=== PATIENT | female | born 1965 | race Caucasian/White ===

== ENCOUNTER → 2019-05-15 14:01 | Outpatient (BNVA) | payer MEDICARE, MEDICAID, SELFPAY | PROVIDERS: Family Provider Internal Medicine; PCP Internal Medicine; Visit Provider Anesthesiology | DX: M54.40 Lumbago with sciatica, unspecified side (principal); M54.12 Radiculopathy, cervical region; M79.651 Pain in right thigh; M79.652 Pain in left thigh; Z79.891 Long term (current) use of opiate analgesic | CPT/HCPCS: 99214 ==

== ENCOUNTER → 2019-07-05 13:11 | Outpatient (BNVA) | payer MEDICARE, MEDICAID, SELFPAY | PROVIDERS: Family Provider Internal Medicine; PCP Internal Medicine; Visit Provider Nurse Practitioner | DX: Z76.89 Persons encountering health services in other specified circumstances (principal) | CPT/HCPCS: 99212 ==

== ENCOUNTER 2019-07-12 07:28 | Outpatient (CLI) | payer MEDICARE, MEDICAID, SELFPAY ==
--- NOTE | 2019-07-12 07:35 | US_ITS ---
WS: [id number] ULTRASOUND RIGHT BREAST HISTORY: R PEA SIZED MASS TO 1 O'CLOCK R BREAST/CHEST AREA COMPARISON: Mammogram 01/15/2019 TECHNIQUE: 2-D and Doppler. Isoechoic ill-defined structure in the RIGHT breast at 1:00, 6 cm from the nipple. This corresponds t o the palpable abnormality. This is very benign in appearance and blends in with the adjacent soft ti ssue. No increased vascularity. US/US breast RT limited* [id number] IMPRESSION: BI-RADS: 2-Benign FOLLOW-UP: See Report Recommend return to screening mammogram which should be in January 2020. If this palpable nodule increases in size we can reevaluate by ultrasound. On t soy's ultrasound this is extremely benign in appearance.
== END 2019-07-12 07:29 | disposition home or self-care (01) ==
PROVIDERS: Family Provider Internal Medicine; PCP Internal Medicine; Visit Provider Nurse Practitioner Family
DX: N63.12 Unspecified lump in the right breast, upper inner quadrant (principal)
CPT/HCPCS: 76642

== ENCOUNTER → 2019-09-11 08:48 | Outpatient (BNVA) | payer MEDICARE, MEDICAID, SELFPAY | PROVIDERS: Family Provider Internal Medicine; PCP Internal Medicine; Visit Provider Nurse Practitioner | DX: M54.41 Lumbago with sciatica, right side (principal); M54.42 Lumbago with sciatica, left side; M54.12 Radiculopathy, cervical region; Z79.891 Long term (current) use of opiate analgesic | CPT/HCPCS: 99213 ==

== ENCOUNTER → 2019-10-17 14:36 | Outpatient (BNVA) | payer MEDICARE, MEDICAID, SELFPAY | PROVIDERS: Family Provider Internal Medicine; PCP Internal Medicine; Referring Provider Nurse Practitioner; Visit Provider Specialist | DX: R20.0 Anesthesia of skin (principal); R20.2 Paresthesia of skin; M25.531 Pain in right wrist | CPT/HCPCS: 95908 ==

== ENCOUNTER → 2019-11-01 09:24 | Outpatient (BNVA) | payer MEDICARE, MEDICAID, SELFPAY | PROVIDERS: Family Provider Internal Medicine; PCP Internal Medicine; Visit Provider Nurse Practitioner | DX: M54.42 Lumbago with sciatica, left side (principal); M54.41 Lumbago with sciatica, right side; M54.12 Radiculopathy, cervical region; Z79.891 Long term (current) use of opiate analgesic | CPT/HCPCS: 99214 ==

== ENCOUNTER 2019-12-25 08:28 | Outpatient (CLI) | payer MEDICARE, MEDICAID, SELFPAY ==
--- NOTE | 2019-12-25 08:39 | MM_ITS ---
WS: [id number] BILATERAL DIGITAL DIAGNOSTIC MAMMOGRAM MAMMOGRAPHY WITH CAD CLINICAL INFORMATION: RT BREAST LUMP COMPARISON: January 15, 2019 TECHNIQUE: Bilateral CC, MLO, and ML views. FINDINGS: Scattered fibroglandular densities bilaterally. Palpable marker upper inner right breast posterior de pth. No definite mammographic abnormalities. Ultrasound is pending. Left breast is unremarkable.. ULTRASOUND BREAST RIGHT TECHNIQUE: Ultrasound right breast focused area of concern. CLINICAL INFORMATION: RT BREAST LUMP COMPARISON: None. FINDINGS: Ultrasound breast right at the 1:00 position in the area of concern. No pathologic lesions. No lesion s to target for biopsy. No suspicious lesions. Recommend return to annual screening mammography. MM/[place] [id number] IMPRESSION: BI-RADS: 2-Benign FOLLOW UP: 1 Year Follow-up Recommend return to annual screening mammography.
== END 2019-12-25 08:29 | disposition home or self-care (01) ==
LOC: RADSHAW 08:32
PROVIDERS: PCP Internal Medicine; Visit Provider Internal Medicine
DX: N63.12 Unspecified lump in the right breast, upper inner quadrant (principal)
CPT/HCPCS: 76642; 77066

== ENCOUNTER → 2020-01-11 09:17 | Outpatient (BNVA) | payer OTHER, MEDICAID, SELFPAY | PROVIDERS: PCP Internal Medicine; Visit Provider Nurse Practitioner | DX: M54.41 Lumbago with sciatica, right side (principal); M54.12 Radiculopathy, cervical region; Z79.891 Long term (current) use of opiate analgesic | CPT/HCPCS: 99213 ==

== ENCOUNTER → 2020-02-28 09:51 | Outpatient (BNVA) | payer OTHER, MEDICAID, SELFPAY | PROVIDERS: PCP Internal Medicine; Visit Provider Anesthesiology | DX: M54.41 Lumbago with sciatica, right side (principal); M54.12 Radiculopathy, cervical region; Z79.891 Long term (current) use of opiate analgesic | CPT/HCPCS: 99214 ==

== ENCOUNTER → 2020-04-09 09:13 | Outpatient (BNVA) | payer OTHER, MEDICAID, SELFPAY | PROVIDERS: PCP Internal Medicine; Visit Provider Anesthesiology | DX: M54.41 Lumbago with sciatica, right side (principal); M54.12 Radiculopathy, cervical region; R51.9 Headache, unspecified; Z79.891 Long term (current) use of opiate analgesic | CPT/HCPCS: 99214 ==

== ENCOUNTER → 2020-05-09 09:07 | Outpatient (BNVA) | payer MEDICARE, MEDICAID, SELFPAY | PROVIDERS: PCP Internal Medicine; Visit Provider Nurse Practitioner | DX: M54.12 Radiculopathy, cervical region (principal); M54.41 Lumbago with sciatica, right side; M25.551 Pain in right hip; Z79.891 Long term (current) use of opiate analgesic; Z79.1 Long term (current) use of non-steroidal anti-inflammatories (NSAID) | CPT/HCPCS: 99214 ==

== ENCOUNTER 2020-05-22 09:14 | Outpatient (CLI) | payer MEDICARE, MEDICAID, SELFPAY ==
--- NOTE | 2020-05-22 09:15 | CT_ITS ---
WS: [id number] CT LUMBAR SPINE, noncontrast. HISTORY: M54.40 - Lumbago with sciatica, unspecified side TECHNIQUE: Contiguous 2.5 mm axial imaging are performed. Sagittal and coronal reformats are submitte d and reviewed. All CT scans at [facility] use at least one of these dose optimization te chniques: automated exposure control; mA and/or kV adjustment per patient size (includes targeted exa ms where dose is matched to clinical indication); or iterative reconstruction. IV contrast: None DLP: 2046.12 mGycm COMPARISON: 12/26/2013 Mild increase in the lumbar lordosis. Endplate osteophytes and facet arthritis. No fractures or bone destruction. L1-2: Mild annular disc bulging and osteophytic ridging. No stenosis. L2-3: Mild osteophytic ridging and annular disc bulge. No stenosis. L3-4: Moderate annular disc bulging and osteophytic ridging. Mild ligamentum flavum hypertrophy. Ther e is mild central and bilateral foraminal stenosis. L4-5: Moderate annular disc bulging and osteophytic ridging. Facet joint arthritis encroaching into t he thecal sac. Moderate central and bilateral foraminal stenosis. Mild bilateral subarticular recess stenosis. L5-S1: Small osteophytes with no stenosis. Bilateral facet joint arthritis. Visualized retroperitoneum is normal. CT/CT lumbar spine wo con* [id number] IMPRESSION: 1. Moderate central and bilateral foraminal stenosis at L4-5 and mild bilatera l subarticular recess stenosis. Similar to the prior study from 2013. 2. Mild central and bilateral foraminal stenosis at L3-4. 3. No severe stenosis.
== END 2020-05-22 09:15 | disposition home or self-care (01) ==
LOC: RADWPI 09:21
PROVIDERS: PCP Internal Medicine; Visit Provider Nurse Practitioner
DX: M54.40 Lumbago with sciatica, unspecified side (principal); M48.061 Spinal stenosis, lumbar region without neurogenic claudication
CPT/HCPCS: 72131

== ENCOUNTER → 2020-07-04 10:02 | Outpatient (BNVA) | payer MEDICARE, MEDICAID, SELFPAY | PROVIDERS: PCP Internal Medicine; Visit Provider Nurse Practitioner | DX: M54.12 Radiculopathy, cervical region (principal); M54.41 Lumbago with sciatica, right side; M25.551 Pain in right hip; Z79.1 Long term (current) use of non-steroidal anti-inflammatories (NSAID); Z79.891 Long term (current) use of opiate analgesic | CPT/HCPCS: 99214 ==

== ENCOUNTER → 2020-08-27 09:34 | Outpatient (BNVA) | payer MEDICARE, MEDICAID, SELFPAY | PROVIDERS: PCP Internal Medicine; Visit Provider Anesthesiology | DX: M54.41 Lumbago with sciatica, right side (principal); M54.12 Radiculopathy, cervical region; Z79.1 Long term (current) use of non-steroidal anti-inflammatories (NSAID); Z79.891 Long term (current) use of opiate analgesic | CPT/HCPCS: 99214 ==

== ENCOUNTER → 2020-10-22 08:58 | Outpatient (BNVA) | payer MEDICARE, MEDICAID, SELFPAY | PROVIDERS: PCP Internal Medicine; Visit Provider Anesthesiology | DX: M54.41 Lumbago with sciatica, right side (principal); M54.12 Radiculopathy, cervical region; Z79.1 Long term (current) use of non-steroidal anti-inflammatories (NSAID); Z79.891 Long term (current) use of opiate analgesic; Z87.891 Personal history of nicotine dependence | CPT/HCPCS: 99214 ==

== ENCOUNTER → 2020-12-31 09:03 | Outpatient (BNVA) | payer MEDICARE, MEDICAID, SELFPAY | PROVIDERS: PCP Internal Medicine; Visit Provider Anesthesiology | DX: M54.41 Lumbago with sciatica, right side (principal); M54.12 Radiculopathy, cervical region; Z79.891 Long term (current) use of opiate analgesic; Z79.1 Long term (current) use of non-steroidal anti-inflammatories (NSAID) | CPT/HCPCS: 99214 ==

== ENCOUNTER → 2021-02-25 11:12 | Outpatient (BNVA) | payer MEDICARE, MEDICAID, SELFPAY | PROVIDERS: PCP Internal Medicine; Visit Provider Anesthesiology | DX: M54.12 Radiculopathy, cervical region (principal); M54.41 Lumbago with sciatica, right side; Z79.891 Long term (current) use of opiate analgesic; Z79.1 Long term (current) use of non-steroidal anti-inflammatories (NSAID); Z87.891 Personal history of nicotine dependence | CPT/HCPCS: 99214 ==

== ENCOUNTER → 2021-04-14 14:31 | Outpatient (BNVA) | payer MEDICARE, MEDICAID, SELFPAY | PROVIDERS: PCP Internal Medicine; Referring Provider Internal Medicine; Visit Provider Podiatrist Foot & Ankle Surgery | DX: M79.671 Pain in right foot (principal) | CPT/HCPCS: 73630 ==

== ENCOUNTER → 2021-04-29 12:42 | Outpatient (BNVA) | payer MEDICARE, MEDICAID, SELFPAY | PROVIDERS: PCP Internal Medicine; Visit Provider Anesthesiology | DX: M54.40 Lumbago with sciatica, unspecified side (principal); M54.12 Radiculopathy, cervical region; M25.551 Pain in right hip; Z79.1 Long term (current) use of non-steroidal anti-inflammatories (NSAID); Z79.891 Long term (current) use of opiate analgesic | CPT/HCPCS: 99214 ==

== ENCOUNTER 2021-05-19 08:30 | Outpatient (CLI) | payer MEDICARE, MEDICAID, SELFPAY ==
--- NOTE | 2021-05-19 08:43 | MM_ITS ---
WS: [id number] BILATERAL SCREENING DIGITAL MAMMOGRAM WITH CAD HISTORY: SCREENING COMPARISON: 12/25/2019 and 01/15/2019 Bilateral CC and MLO views submitted. Computer aided detection analyzed. Breast composition: There are scattered areas of fibroglandular density. No suspicious masses, microc alcifications or architectural distortion. MM/[place] [id number] IMPRESSION: BI-RADS: 1-Negative FOLLOW UP: 1 Year Follow-up
== END 2021-05-19 08:31 | disposition home or self-care (01) ==
PROVIDERS: PCP Internal Medicine; Visit Provider Internal Medicine
DX: Z12.31 Encounter for screening mammogram for malignant neoplasm of breast (principal)
CPT/HCPCS: 77067

== ENCOUNTER 2021-07-15 08:45 | Outpatient (CLI) | payer MEDICARE, MEDICAID, SELFPAY ==
--- NOTE | 2021-07-15 09:12 | CT_ITS ---
WS: [id number] CT LUMBAR SPINE, noncontrast. HISTORY: LUMBOSACRAL/SPONDYLOSIS W/RADICULOPATHY TECHNIQUE: Contiguous 2.5 mm axial imaging are performed. Sagittal and coronal reformats are submitte d and reviewed. All CT scans at [facility] use at least one of these dose optimization techni ques: automated exposure control; mA and/or kV adjustment per patient size (includes targeted exams w here dose is matched to clinical indication); or iterative reconstruction. IV contrast: None DLP: 1767.54 mGy.cm COMPARISON: 05/22/2020 Mild increase in the lumbar lordosis. No acute fractures. Progressive facet joint degenerative change s at L4-5. Increasing air and mild widening of the facet joint at L4-5. L1-2: Mild disc bulging with no stenosis. L2-3: No stenosis or herniation. L3-4: Diffuse annular disc bulging contacting the ventral thecal sac. Bilateral facet joint arthritis and ligamentum flavum hypertrophy. Mild central and bilateral foraminal stenosis. There are small bi lateral foraminal disc protrusions. Minimal contact on the exiting L3 nerve roots bilaterally. L4-5: Mild annular disc bulge. Ligamentum flavum hypertrophy and facet arthritis. Disc encroachment u amish the ventral thecal sac. Complete effacement of fat in the RIGHT foramen. Moderate central and RIG HT foraminal stenosis. Mild bilateral subarticular recess encroachment and LEFT foraminal stenosis. L5-S1: Shallow central disc protrusion contacting the ventral thecal sac. New since the prior study. No high-grade central or foraminal stenosis. Bilateral facet joint arthritis. Visualized retroperitoneum is normal. CT/CT lumbar spine wo con* [id number] IMPRESSION: 1. Progression of degenerative facet joint arthritis at L4-5 and to a lesser e xtent L5-S1. 2. Increase in air and widening of the L4-5 facet joints. 3. Moderate central and RIGHT foraminal stenosis L4-5 with mild bilateral suba rticular recess and LEFT foraminal stenosis. Contact on the RIGHT L4 and L5 ner ve roots and on the LEFT L5 nerve root. 4. Mild central and bilateral foraminal stenosis at L3-4. Minimal contact on t he L3 nerve roots by disc. Small bilateral foraminal disc protrusions at L3-4.
== END 2021-07-15 08:46 | disposition home or self-care (01) ==
LOC: RAD 08:48
PROVIDERS: PCP Internal Medicine; Visit Provider General Practice
DX: M47.27 Other spondylosis with radiculopathy, lumbosacral region (principal); M47.816 Spondylosis without myelopathy or radiculopathy, lumbar region; M48.061 Spinal stenosis, lumbar region without neurogenic claudication; M51.26 Other intervertebral disc displacement, lumbar region
CPT/HCPCS: 72131

== ENCOUNTER → 2021-10-21 13:34 | Outpatient (BNVA) | payer MEDICARE, MEDICAID, SELFPAY | PROVIDERS: PCP Internal Medicine; Visit Provider Podiatrist Foot & Ankle Surgery | DX: M21.41 Flat foot [pes planus] (acquired), right foot (principal); M21.42 Flat foot [pes planus] (acquired), left foot; M76.829 Posterior tibial tendinitis, unspecified leg; M19.071 Primary osteoarthritis, right ankle and foot | CPT/HCPCS: 99213; 99214 ==

== ENCOUNTER 2021-12-03 11:11 | Outpatient (CLI) | payer MEDICARE, MEDICAID, SELFPAY | END 2021-12-03 11:12 | disposition home or self-care (01) | LOC: SPT 11:12 | PROVIDERS: PCP Internal Medicine; Visit Provider Podiatrist Foot & Ankle Surgery | DX: Z46.89 Encounter for fitting and adjustment of other specified devices (principal); M21.41 Flat foot [pes planus] (acquired), right foot; M21.42 Flat foot [pes planus] (acquired), left foot; M76.829 Posterior tibial tendinitis, unspecified leg; M19.079 Primary osteoarthritis, unspecified ankle and foot | CPT/HCPCS: 97760; L3030 ==

== ENCOUNTER → 2022-05-18 09:07 | Outpatient (BNVA) | payer MEDICARE, MEDICAID, SELFPAY | PROVIDERS: PCP Internal Medicine; Visit Provider Anesthesiology Pain Medicine | DX: M54.12 Radiculopathy, cervical region (principal); M47.816 Spondylosis without myelopathy or radiculopathy, lumbar region; M79.604 Pain in right leg; M79.605 Pain in left leg | CPT/HCPCS: 99204 ==

== ENCOUNTER → 2022-06-01 13:19 | Outpatient (BNVA) | payer MEDICARE, MEDICAID, SELFPAY | PROVIDERS: PCP Internal Medicine; Visit Provider Anesthesiology Pain Medicine | DX: M47.816 Spondylosis without myelopathy or radiculopathy, lumbar region (principal) | CPT/HCPCS: 64493; 64494; 64495; J3490 ==

== ENCOUNTER → 2022-06-15 13:36 | Outpatient (BNVA) | payer MEDICARE, MEDICAID, SELFPAY | PROVIDERS: PCP Internal Medicine; Visit Provider Anesthesiology Pain Medicine | DX: M47.816 Spondylosis without myelopathy or radiculopathy, lumbar region (principal); M54.40 Lumbago with sciatica, unspecified side | CPT/HCPCS: 64493; 64494; 64495; J3490 ==

== ENCOUNTER 2022-06-17 08:57 | Outpatient (CLI) | payer MEDICARE, MEDICAID, SELFPAY ==
--- NOTE | 2022-06-17 09:16 | MM_ITS ---
WS: [id number] Bilateral screening 3D tomosynthesis digital mammogram, 06/17/2022 Clinical Data: SCREENING Comparison: 05/19/2021, 12/25/2019, 01/15/2019, 11/24/2017, 07/12/2016, 07/16/2014. Findings: The breast parenchymal pattern shows fibroglandular tissue. No spiculated masses or clustered calcifi cations are seen. There are no secondary signs of carcinoma. MM/[place] [id number] Impression: 1. Negative bilateral mammogram unchanged. 2. Recommend annual screening mammograms. BIRADS: 1-Negative FOLLOW UP: 1 Year Follow-up The CAD inventory checker was used.
== END 2022-06-17 08:58 | disposition home or self-care (01) ==
LOC: RAD 09:01
PROVIDERS: PCP Internal Medicine; Visit Provider Internal Medicine
DX: Z12.31 Encounter for screening mammogram for malignant neoplasm of breast (principal)
CPT/HCPCS: 77063; 77067

== ENCOUNTER → 2022-07-06 11:17 | Outpatient (BNVA) | payer MEDICARE, MEDICAID, SELFPAY | PROVIDERS: PCP Internal Medicine; Visit Provider Anesthesiology Pain Medicine | DX: M16.0 Bilateral primary osteoarthritis of hip (principal); M25.551 Pain in right hip; M54.40 Lumbago with sciatica, unspecified side; M47.816 Spondylosis without myelopathy or radiculopathy, lumbar region; M54.12 Radiculopathy, cervical region | CPT/HCPCS: 73503; 73522; 99214 ==

== ENCOUNTER → 2022-08-03 12:31 | Outpatient (BNVA) | payer MEDICARE, MEDICAID, SELFPAY | PROVIDERS: PCP Internal Medicine; Visit Provider Anesthesiology Pain Medicine | DX: M47.816 Spondylosis without myelopathy or radiculopathy, lumbar region (principal); M54.50 Low back pain, unspecified | CPT/HCPCS: 64635; 64636; J1030 ==

== ENCOUNTER → 2022-09-09 10:57 | Outpatient (BNVA) | payer MEDICARE, MEDICAID, SELFPAY | PROVIDERS: PCP Internal Medicine; Visit Provider Anesthesiology Pain Medicine | DX: M54.12 Radiculopathy, cervical region (principal); M47.816 Spondylosis without myelopathy or radiculopathy, lumbar region; M25.551 Pain in right hip | CPT/HCPCS: 99214 ==

== ENCOUNTER → 2022-10-26 13:07 | Outpatient (BNVA) | payer MEDICARE, MEDICAID, SELFPAY | PROVIDERS: PCP Internal Medicine; Visit Provider Anesthesiology Pain Medicine | DX: M47.816 Spondylosis without myelopathy or radiculopathy, lumbar region (principal); M54.40 Lumbago with sciatica, unspecified side; M54.12 Radiculopathy, cervical region; M25.559 Pain in unspecified hip | CPT/HCPCS: 64635; 64636; J1030 ==

== ENCOUNTER → 2022-11-10 10:43 | Outpatient (BNVA) | payer MEDICARE, MEDICAID, SELFPAY | PROVIDERS: PCP Internal Medicine; Visit Provider Anesthesiology Pain Medicine | DX: M54.12 Radiculopathy, cervical region; M47.816 Spondylosis without myelopathy or radiculopathy, lumbar region | CPT/HCPCS: 99214 ==

== ENCOUNTER → 2022-12-02 14:15 | Outpatient (BNVA) | payer MEDICARE, MEDICAID, SELFPAY | PROVIDERS: PCP Internal Medicine; Visit Provider Anesthesiology Pain Medicine | DX: M54.16 Radiculopathy, lumbar region (principal); M54.40 Lumbago with sciatica, unspecified side | CPT/HCPCS: 64483; 64484; J1100; J3490 ==

== ENCOUNTER → 2022-12-21 13:10 | Outpatient (BNVA) | payer MEDICARE, MEDICAID, SELFPAY | PROVIDERS: PCP Internal Medicine; Visit Provider Anesthesiology Pain Medicine | DX: M54.16 Radiculopathy, lumbar region (principal) | CPT/HCPCS: 64483; 64484; J1100; J3490 ==

== ENCOUNTER → 2023-01-10 08:58 | Outpatient (BNVA) | payer MEDICARE, MEDICAID, SELFPAY | PROVIDERS: PCP Internal Medicine; Visit Provider Anesthesiology Pain Medicine | DX: M54.40 Lumbago with sciatica, unspecified side; M54.12 Radiculopathy, cervical region; M47.816 Spondylosis without myelopathy or radiculopathy, lumbar region; M16.0 Bilateral primary osteoarthritis of hip | CPT/HCPCS: 99214 ==

== ENCOUNTER 2023-01-19 06:00 | Outpatient (RCR) | payer MEDICARE, MEDICAID, SELFPAY | END 2023-02-08 23:59 | disposition home or self-care (01) | LOC: APT 06:00 | PROVIDERS: Visit Provider Anesthesiology Pain Medicine | DX: M25.559 Pain in unspecified hip (principal) | CPT/HCPCS: 97110; 97112; 97162; 97530 ==

== ENCOUNTER 2023-02-09 06:00 | Outpatient (RCR) | payer MEDICARE, MEDICAID, SELFPAY | END 2023-03-10 23:59 | disposition home or self-care (01) | LOC: APT 06:00 | PROVIDERS: PCP Internal Medicine; Visit Provider Anesthesiology Pain Medicine | DX: M25.559 Pain in unspecified hip (principal) | CPT/HCPCS: 97110; 97112; 97140; 97530 ==

== ENCOUNTER → 2023-02-15 09:56 | Outpatient (BNVA) | payer MEDICARE, MEDICAID, SELFPAY | PROVIDERS: PCP Internal Medicine; Visit Provider Anesthesiology Pain Medicine | DX: M54.12 Radiculopathy, cervical region; M47.816 Spondylosis without myelopathy or radiculopathy, lumbar region; M48.061 Spinal stenosis, lumbar region without neurogenic claudication | CPT/HCPCS: 99213 ==

== ENCOUNTER 2023-03-11 06:00 | Outpatient (RCR) | payer MEDICARE, MEDICAID, SELFPAY | END 2023-04-10 23:59 | disposition home or self-care (01) | LOC: APT 06:00 | PROVIDERS: PCP Internal Medicine; Visit Provider Anesthesiology Pain Medicine | DX: M25.559 Pain in unspecified hip (principal) | CPT/HCPCS: 97110; 97530 ==

== ENCOUNTER 2023-04-12 10:38 | Outpatient (CLI) | payer MEDICARE, MEDICAID, SELFPAY ==
--- NOTE | 2023-04-12 10:43 | USR_ITS ---
PROCEDURE INFORMATION: Exam: US Soft Tissue Head and Neck, Thyroid Exam date and time: 04/12/2023 10:51 AM Age: 57 years old Clinical indication: Abnormal findings; Abnormal thyroid lab test; Additional info: Hypothyroidism TECHNIQUE: Imaging protocol: Real-time ultrasound scan of the neck with image documentation. Exam focused on the thyroid. COMPARISON: [place] thyroid [id number] 02/15/2017 1:53 PM FINDINGS: Right thyroid lobe: Coarsened heterogeneous gland without hyperemia or discrete nodule, measuring 1.4 x 1.8 x 3.8 cm. Left thyroid lobe: Coarsened heterogeneous gland without hyperemia or discrete nodule, measuring 1.2 x 1.4 x 3.1 cm. Isthmus: No nodules. Measures 0.3 cm in thickness. Other findings: Interrogated submandibular glands have a normal appearance. No suspicious lymphadenopathy. US/US thyroid [id number] IMPRESSION: Atrophic coarsened heterogeneous thyroid gland in keeping with sequela of thyroiditis.
== END 2023-04-12 10:39 | disposition home or self-care (01) ==
PROVIDERS: PCP Internal Medicine; Visit Provider Internal Medicine
DX: E03.9 Hypothyroidism, unspecified (principal)
CPT/HCPCS: 76536

== ENCOUNTER → 2023-05-18 09:54 | Outpatient (BNVA) | payer MEDICARE, MEDICAID, SELFPAY | PROVIDERS: PCP Internal Medicine; Visit Provider Anesthesiology Pain Medicine | DX: M54.12 Radiculopathy, cervical region; M47.816 Spondylosis without myelopathy or radiculopathy, lumbar region; M16.0 Bilateral primary osteoarthritis of hip | CPT/HCPCS: 99214 ==

== ENCOUNTER → 2023-05-30 14:12 | Outpatient (BNVA) | payer MEDICARE, MEDICAID, SELFPAY | PROVIDERS: PCP Internal Medicine; Visit Provider Anesthesiology Pain Medicine | DX: M54.16 Radiculopathy, lumbar region (principal); M25.559 Pain in unspecified hip; M54.12 Radiculopathy, cervical region; M47.816 Spondylosis without myelopathy or radiculopathy, lumbar region; M48.061 Spinal stenosis, lumbar region without neurogenic claudication | CPT/HCPCS: 99214 ==

== ENCOUNTER 2023-07-19 11:55 | Outpatient (CLI) | payer MEDICARE, MEDICAID, SELFPAY ==
--- NOTE | 2023-07-19 12:00 | MM_ITS ---
WS: [id number] BILATERAL 3D TOMOSYNTHESIS DIGITAL SCREENING MAMMOGRAPHY WITH CAD CLINICAL INFORMATION: SCREENING HISTORY: Screening mammogram. No current complaints. COMPARISON: 06/17/2022 TECHNIQUE: Bilateral CC and MLO views. FINDINGS: Scattered fibroglandular densities bilaterally. No suspicious focal mass, asymmetry, calcifications, or architectural distortion. No evidence of malignancy. IMPRESSION: MM/[place] [id number] BI-RADS: 1-Negative FOLLOW UP: 1 Year Follow-up Recommend return to annual screening mammography.
== END 2023-07-19 11:56 | disposition home or self-care (01) ==
LOC: MOBLMAM 12:01
PROVIDERS: PCP Internal Medicine; Visit Provider Internal Medicine
DX: Z12.31 Encounter for screening mammogram for malignant neoplasm of breast (principal)
CPT/HCPCS: 77063; 77067

== ENCOUNTER 2023-08-09 09:11 | Outpatient (CLI) | payer MEDICARE, MEDICAID, SELFPAY ==
[2023-08-09 09:37] VITALS: BMI 40.3
--- NOTE | 2023-08-09 09:38 | ECG_ITS ---
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 Interpretive Statements NAME OF STUDY: LEXISCAN SESTAMIBI STRESS TEST INDICATION: [Chest Pain] Procedure: At the baseline, the blood pressure was 136/86 mmHg with a heart rate of 81 bpm. The electrocardiogram showed normal sinus rhythm, normal axis with normal ST and T's. The Lexiscan was infused over a period of 20 seconds. A total of 0.4 mg of Lexiscan was infused. The stress phase was continued for a total of 5 minutes. Heart rate was at the end of stress phase was 82 bpm and a blood pressure of 126/84 mmHg. The EKG at the peak infusion revealed normal sinus rhythm with no significant ST-T wave changes. Sestamibi was injected 20 seconds after the Lexiscan infusion. Blood pressure at the end of recovery phase was 121/88 mmHg with a heart rate of 75 bpm. Conclusion: 1. Normal EKG response to Lexiscan infusion 2. No Lexiscan induced chest pain or cardiac arrhythmia. 3. Normal blood pressure and heart rate response. 4. Sestamibi/sestamibi perfusion scan pending; see separate report. Electronically Signed On 08-29-2023 18:34:55 CDT by Carlos Sanchez M.D. [id number]
--- NOTE | 2023-08-09 09:38 | NMCV_ITS ---
NM amador perf SPECT r/s* [id number] Cheyenne Servin Age: 58 Gender: F : 1965 Exam Date: 08/09/2023 09:38 Ordering Phys: Adela Galloway MD Technologist: GIULIA Hatch Exam Location: [facility] Indications: CHEST PAIN STRESS TEST Please see separate stress test report in [facility] for full findings IMAGE PROTOCOL Rest/Stress 1 Lexiscan Day Radiopharmaceutical Dose (mCi) Administration Site Administered by Rest: Tc-99m 10.7 IV GIULIA Nation Sestamibi Stress:Tc-99m 32.3 IV GIULIA Nation Sestamibi Rest: 09-Aug-2023 60 Discovery 630 Stress: 09-Aug-2023 30 Discovery 630 0.4mg Lexiscan. Supine position only as patient was unable to lay prone. SPECT RESULTS Technical Quality: Excellent Raw Data Analysis: Normal Image Corrections: No attenuation or motion correction applied Summed Stress Score: 5 Summed Rest Score: 5 Summed Difference Score: 1 PERFUSION FINDINGS There is a medium sized area, of moderate intensity, partially reversible perfusion defect in the apical lateral, anterolateral and inferolateral higgins. This is consistent with prior infarct with medium sized area of haylie-infarct ischemia in the left circumflex artery territory. FUNCTIONAL RESULTS (calculated via Gated SPECT) Stress Image LV EF (%): 84 Stress EDV (mL):101 TID: 0.84 Stress ESV (mL):16 FUNCTIONAL FINDINGS: There is normal left ventricular systolic function. IMPRESSIONS 1. Prior infarct with medium sized area of haylie-infarct ischemia is seen in the left circumflex artery territory. 2. LV systolic function is normal Carlos Sanchez MD (Electronically Signed) Final Date: 11 Aug 2023 10:52 S
[2023-08-09] MEDS: regadenoson 0.4 Mg/5 ml Syringe 0.400000000000000022 MG IVP (11:18)
[2023-08-09 11:57] VITALS: BP 117/82; PULSE 72
== END 2023-08-09 09:12 | disposition home or self-care (01) ==
PROVIDERS: PCP Internal Medicine; Visit Provider Internal Medicine
DX: R07.9 Chest pain, unspecified (principal)
CPT/HCPCS: 36415; 78452; 93017; 96374; A9500; J2785

== ENCOUNTER → 2023-08-25 09:17 | Outpatient (BNVA) | payer MEDICARE, MEDICAID, SELFPAY | PROVIDERS: PCP Internal Medicine; Visit Provider Internal Medicine Cardiovascular Disease | DX: R94.39 Abnormal result of other cardiovascular function study (principal); I10 Essential (primary) hypertension; M19.09 Primary osteoarthritis, other specified site; R00.2 Palpitations; Z87.891 Personal history of nicotine dependence | CPT/HCPCS: 99204 ==

== ENCOUNTER 2023-09-08 07:57 | Outpatient (CLI) | payer MEDICARE, MEDICAID, SELFPAY ==
--- NOTE | 2023-09-08 08:15 | USCV_ITS ---
Cheyenne Servin Age: 58 Gender: F : 1965 Exam Date: 09/08/2023 08:06 Ordering Phys: Abbey Craig MD ([email or web address]) Technologist: SHARMIN Exam Location: [facility] [place] Indication: CHEST PAIN/SR BP: 170 / 89 HR: 64 Rhythm: Sinus Technical Quality: Adequate MEASUREMENTS (Male / Female) Normal Values 2D ECHO LV Diastolic Diameter PLAX 4.3 cm 4.2 - 5.9 / 3.9 - 5.3 cm IVS Diastolic Thickness 1.2 cm 0.6 - 1.0 / 0.6 - 0.9 cm IVS Systolic Thickness 3.5 cm LVPW Diastolic Thickness 2.2 cm 0.6 - 1.0 / 0.6 - 0.9 cm LVPW Systolic Thickness 2.1 cm LVOT Diameter 2.0 cm LV Ejection Fraction 2D Teich 62.7 % LV Ejection Fraction MOD 2C 63.6 % LV Ejection Fraction 2C AL 62.1 % LA Diameter 3.8 cm RA Systolic Volume 4C AL 25.8 ml RA Systolic Volume 4C MOD 24.8 ml LA Sys Volume AL 51.6 cm cubed LA Sys Volume Index AL 21.7 cm cubed/m squared Aorta at Sinotubular Diameter 2.8 cm IVC Diameter 1.5 cm M-MODE LA Ao Ratio MM 1.1 AV Cusp Separation MM 1.8 cm DOPPLER AV Peak Velocity 119.0 cm/s LVOT Peak Velocity 91.0 cm/s AV Area Cont Eq vti 2.7 cm squared AV Area Cont Eq pk 2.4 cm squared MV Peak Velocity 100.0 cm/s MV Area PHT 3.9 cm squared Mitral E to A Ratio 1.4 TR Peak Velocity 158.0 cm/s TR Peak Gradient 10.0 mmHg TR Mean Velocity 132.0 cm/s TR Mean Gradient 7.3 mmHg TR Velocity Time Integral 52.7 cm TV Peak E Velocity 58.0 cm/s Right Atrial Pressure 3.0 mmHg Pulmonary Artery Systolic Pressu 13.0 mmHg PV Peak Velocity 98.0 cm/s RV Ejection Time 0.4 s FINDINGS Left Ventricle Normal left ventricular size and systolic function, EF 62% hypokinetic basal inferior wall segment . Right Ventricle The right ventricle is normal in size and function. Right Atrium The right atrium is normal in size. Left Atrium Mildly increased left atrial size. Mitral Valve Mild mitral valve regurgitation. Aortic Valve No gross abnormalities noted Tricuspid Valve No gross abnormalities noted Pulmonic Valve No gross abnormalities noted Pericardium No pericardial effusion. Aorta Normal aortic annulus size. IVC Normal inferior vena cava. CONCLUSIONS Normal left ventricular size and systolic function, EF 62% hypokinetic basal inferior wall segment . Mildly increased left atrial size. Mild mitral valve regurgitation. There is no pericardial effusion. There are no intracardiac masses. No similar previous studies are available for comparison Dr Abbey Craig MD [facility] (Electronically Signed) Final Date: 12 September 2023 08:36 S
== END 2023-09-08 07:58 | disposition home or self-care (01) ==
LOC: RAD 07:57
PROVIDERS: PCP Internal Medicine; Visit Provider Internal Medicine Cardiovascular Disease
DX: R07.9 Chest pain, unspecified (principal); R06.09 Other forms of dyspnea; I34.0 Nonrheumatic mitral (valve) insufficiency
CPT/HCPCS: 93306

== ENCOUNTER → 2023-10-25 08:41 | Outpatient (BNVA) | payer MEDICARE, MEDICAID, SELFPAY | PROVIDERS: PCP Internal Medicine; Visit Provider Nurse Practitioner Family | DX: I10 Essential (primary) hypertension (principal); R94.39 Abnormal result of other cardiovascular function study; Z87.891 Personal history of nicotine dependence | CPT/HCPCS: 99214 ==

== ENCOUNTER 2024-08-21 10:58 | Outpatient (CLI) | payer MEDICARE, MEDICAID, SELFPAY ==
--- NOTE | 2024-08-21 11:00 | MM_ITS ---
WS: [id number] BILATERAL 3D TOMOSYNTHESIS DIGITAL SCREENING MAMMOGRAPHY WITH CAD CLINICAL INFORMATION: SCREENING HISTORY: Screening mammogram. No current complaints. COMPARISON: 2023 TECHNIQUE: Bilateral CC and MLO views. FINDINGS: Scattered fibroglandular densities bilaterally. No suspicious focal mass, asymmetry, calcifications, or architectural distortion. No evidence of malignancy. MM/MM scr BI tomosynthesis [id number] IMPRESSION: DENSITY: There are scattered areas of fibroglandular density. BI-RADS: 1 - Negative. FOLLOW UP: 1 Year Follow-up Recommend return to annual screening mammography.
== END 2024-08-21 10:59 | disposition home or self-care (01) ==
PROVIDERS: PCP Internal Medicine; Visit Provider Internal Medicine
DX: Z12.31 Encounter for screening mammogram for malignant neoplasm of breast (principal); R92.323 Mammographic fibroglandular density, bilateral breasts
CPT/HCPCS: 77063; 77067

== ENCOUNTER → 2024-09-06 07:45 | Outpatient (BNVA) | payer MEDICARE, MEDICAID, SELFPAY | PROVIDERS: PCP Internal Medicine; Visit Provider Podiatrist Foot & Ankle Surgery | DX: M25.571 Pain in right ankle and joints of right foot (principal); M79.671 Pain in right foot; M21.41 Flat foot [pes planus] (acquired), right foot; M21.42 Flat foot [pes planus] (acquired), left foot; M76.821 Posterior tibial tendinitis, right leg; M19.071 Primary osteoarthritis, right ankle and foot; G89.29 Other chronic pain | CPT/HCPCS: 73610; 73620; 99214 ==

== ENCOUNTER → 2024-11-14 08:12 | Outpatient (BNVA) | payer OTHER, MEDICAID, SELFPAY | PROVIDERS: PCP Internal Medicine; Visit Provider Podiatrist Foot & Ankle Surgery | DX: M21.41 Flat foot [pes planus] (acquired), right foot (principal); M21.42 Flat foot [pes planus] (acquired), left foot; M76.829 Posterior tibial tendinitis, unspecified leg; M19.071 Primary osteoarthritis, right ankle and foot; M79.671 Pain in right foot; M25.571 Pain in right ankle and joints of right foot; G89.29 Other chronic pain | CPT/HCPCS: 99213 ==